=== PATIENT | male | born 1960 | race Caucasian/White ===

== ENCOUNTER 2023-02-21 09:34 | Day surgery (SDC) | payer OTHER ==
[2023-02-17 11:06] VITALS: BMI 26.8
[2023-02-21] MEDS ORDERED: PROPOFOL 20 ML ONE (10:53)
[2023-02-21] MEDS ORDERED: PROPOFOL 0 ML ONE (10:53)
[2023-02-21] MEDS ORDERED: PROPOFOL 40 ML ONE (11:19)
[2023-02-21] MEDS ORDERED: Simethicone 40 MG/0.6 ML Drop 30 ML BOT ONE (11:27)
== END 2023-02-21 12:35 | disposition home or self-care (01) ==
LOC: CSHSDC 09:34
PROVIDERS: ATTEND Internal Medicine Gastroenterology
PROC: 0DJ08ZZ Inspection of Upper Intestinal Tract, Via Natural or Artificial Opening Endoscopic (ICD-10-PCS; principal; 2023-02-21)
PROC: 0DJD8ZZ Inspection of Lower Intestinal Tract, Via Natural or Artificial Opening Endoscopic (ICD-10-PCS; principal; 2023-02-21)
DX: K57.31 Diverticulosis of large intestine without perforation or abscess with bleeding (principal); D50.9 Iron deficiency anemia, unspecified; K63.5 Polyp of colon; K64.9 Unspecified hemorrhoids; K25.9 Gastric ulcer, unspecified as acute or chronic, without hemorrhage or perforation; K29.70 Gastritis, unspecified, without bleeding; F32.A Depression, unspecified; I25.2 Old myocardial infarction; Z86.74 Personal history of sudden cardiac arrest; Z79.82 Long term (current) use of aspirin; Z79.02 Long term (current) use of antithrombotics/antiplatelets; Z95.5 Presence of coronary angioplasty implant and graft; Z79.899 Other long term (current) drug therapy; Z87.891 Personal history of nicotine dependence
CPT/HCPCS: J2704